=== PATIENT | male | born 1990 | race Two or more races ===

== ENCOUNTER 2020-10-03 12:33 | Emergency (ER) | payer MEDICAID ==
[~2020-10-03] VITALS: Ht 162.6 cm; Wt 63.6 kg
--- NOTE | 2020-10-03 12:46 | NUR ---
PT IS ON THE MONITOR, ROOM IS NOT CLEARED.
[2020-10-03 14:13] VITALS: BP 102/67
== END 2020-10-03 14:16 | disposition home or self-care (01) ==
LOC: ER 12:34
DX: Z02.89 Encounter for other administrative examinations (principal); R44.1 Visual hallucinations; Z88.1 Allergy status to other antibiotic agents
CPT/HCPCS: 99283

== ENCOUNTER 2020-10-20 17:21 | Emergency (ER) | payer MEDICAID ==
[~2020-10-20] VITALS: Ht 165.1 cm; Wt 63.6 kg
[2020-10-20] MEDS ORDERED: risperiDONE 0.5mg tablet PO ONE (17:25)
[2020-10-20 18:12] LABS: BASOPHILS % (AUTO) 0.3 % (0-1); EOSINOPHILS # (AUTO) 0.1 X10'3 (0-0.9); EOSINOPHILS % (AUTO) 1.4 % (0-6); HEMATOCRIT 42.2 % (42.0-52.0); HEMOGLOBIN 14.4 g/dl (14.0-17.9); LYMPHOCYTES # (AUTO) 1.7 X10'3 (1.1-4.8); LYMPHOCYTES % (AUTO) 27.1 % (21-51); MEAN CORPUSCULAR HEMOGLOBIN 29.1 PG (27.0-31.0); MEAN CORPUSCULAR HGB CONC 34.2 g/dL (33.0-36.5); MEAN CORPUSCULAR VOLUME 85.3 FL (78-98); MEAN PLATELET VOLUME 7.7 FL (7.4-10.4); MONOCYTES # (AUTO) 0.5 X10'3 (0-0.9); MONOCYTES % (AUTO) 7.8 % (2-12); NEUTROPHILS % (AUTO) 63.4 % (42-75); PLATELET COUNT 247 X10'3 (140-440); RED BLOOD COUNT 4.95 X10'6 (4.70-6.10); RED CELL DISTRIBUTION WIDTH 13.3 % (11.5-14.5); WHITE BLOOD COUNT 6.3 X10'3 (4.5-11.0)
[2020-10-20 18:24] LABS: ALBUMIN/GLOBULIN RATIO 1.3 (1.1-1.5); ANION GAP 10 (8-16); ASPARTATE AMINO TRANSFERASE 21 U/L (10-37); BILIRUBIN,TOTAL 1.1 MG/DL (0.1-1.0); BLOOD UREA NITROGEN 18 MG/DL (7-18); BUN/CREATININE RATIO 18.8 (5.4-32.0); CALCIUM 8.8 MG/DL (8.5-10.1); CHLORIDE 103 MMOL/L (99-107); CREATININE 0.96 MG/DL (0.60-1.10); GLUCOSE 124 MG/DL (70-104); POTASSIUM 3.5 MMOL/L (3.5-5.1); SODIUM 141 MMOL/L (135-145); TOTAL CARBON DIOXIDE 28.5 MMOL/L (24-32); TOTAL PROTEIN 7.1 G/DL (6.4-8.2); eGFR > 90 ML/MIN
[2020-10-20 18:25] LABS: ALANINE AMINOTRANSFERASE 28 U/L (12-78); ALKALINE PHOSPHATASE 55 IU/L (46-116)
[2020-10-20 18:34] LABS: ETHANOL < 0.010 GM/DL (0.0-0.010)
--- NOTE | 2020-10-20 19:41 | NUR ---
Patient brought to overflow bed 22 from ER bed 11. Received report and assumed care of patient from MARGIE Calderon.
[2020-10-20 19:51] LABS: CLARITY,URINE CLEAR (Clear); COLOR,URINE YELLOW (Yellow); GLUCOSE, URINE NEGATIVE (Neg); KETONES,URINE NEGATIVE (Neg); LEUKOCYTE ESTERASE ,URINE NEGATIVE (Neg); NITRITES, URINE NEGATIVE (Neg); OCCULT BLOOD,URINE NEGATIVE (Neg); PH,URINE 8.5 (4.8-8.0); PROTEIN,URINE NEGATIVE (Neg)
[2020-10-20 19:57] LABS: UA COLLECTION TYPE URINAL
[2020-10-20 20:05] LABS: URINE AMPHETAMINE SCREEN NEGATIVE (Neg); URINE BARBITUATE SCREEN NEGATIVE (Neg); URINE BENZODIAZEPINES SCREEN NEGATIVE (Neg); URINE CANNABINOID SCREEN NEGATIVE (Neg); URINE COCAINE SCREEN NEGATIVE (Neg); URINE METHADONE SCREEN NEGATIVE (Neg); URINE OPIATE SCREEN NEGATIVE (Neg); URINE PHENCYCLIDINE SCREEN NEGATIVE (Neg)
--- NOTE | 2020-10-20 20:39 | NUR ---
The patient is sleeping in supine position with covers over his head. No signs of distress.
--- NOTE | 2020-10-20 22:19 | NUR ---
The patient continues to sleep with his head covered. No s/s of distress
--- NOTE | 2020-10-21 00:10 | NUR ---
The patient is sleeping on his right side. RR unlabored. No distress.
--- NOTE | 2020-10-21 01:48 | NUR ---
The patient is asleep in supine position. Breathing is equal and unlabored. No s/s of distress.
--- NOTE | 2020-10-21 03:00 | NUR ---
ASSUMED CARE OF PATIENT SLEEPING SUPINE IN BED . HOB ELEVATED AT 20 DEGREES RESP EVEN AND UNLABORED PT IN THE DIRECT LINE OF SITE OF NURSING STAFF . WILL CONTINUE TO MONITOR AND REASSESS
--- NOTE | 2020-10-21 04:00 | NUR ---
PATIENT SLEEPING SUPINE IN BED . HOB ELEVATED AT 20 DEGREES RESP EVEN AND UNLABORED PT IN THE DIRECT LINE OF SITE OF NURSING STAFF . WILL CONTINUE TO MONITOR AND REASSESS
--- NOTE | 2020-10-21 05:00 | NUR ---
ASSUMED CARE OF PATIENT SLEEPING SUPINE IN BED . HOB ELEVATED AT 20 DEGREES RESP EVEN AND UNLABORED PT IN THE DIRECT LINE OF SITE OF NURSING STAFF . WILL CONTINUE TO MONITOR AND REASSESS AURSOABLE TO TOUCH . NO CHANGES TO PREVIOUS ASSESSMENT
--- NOTE | 2020-10-21 06:26 | NUR ---
Patient sleeping supine. No distress observed. Continue to monitor.
--- NOTE | 2020-10-21 06:43 | NUR ---
FAXED PACKET [facility]
[2020-10-21] MEDS ORDERED: LURA40TA3 PO (07:42)
--- NOTE | 2020-10-21 08:06 | NUR ---
Patient eating breakfast. No distress observed. Continue to monitor.
--- NOTE | 2020-10-21 09:36 | NUR ---
Patient sleeping supine. No distress observed. Continue to monitor.
--- NOTE | 2020-10-21 12:05 | NUR ---
Patient ambulatory to BR, steady gait. No distress observed. Continue to monitor.
--- NOTE | 2020-10-21 13:05 | NUR ---
Patient eating lunch. No distress observed. Continue to monitor.
--- NOTE | 2020-10-21 15:03 | NUR ---
Patient sleeping on right side. No distress observed. Continue to monitor.
--- NOTE | 2020-10-21 17:04 | NUR ---
Patient sleeping supine. No distress observed. Continue to monitor.
--- NOTE | 2020-10-21 18:53 | NUR ---
The patient ate very little of his supper. He is resting on his bed with his head covered. During the evening assessment he did uncover his head but gave no eye contact. When asked why he was here he stated, "schizophrenia" When asked about hallucinations he stated that he heard high pitched voices and lights but could not make out what the voices were saying. When asked what the month and the year was he stated, "[place], , " When answering questions there was a response delay. He described his energy level as "no good. I just sleep to skip the days" He is unable to verbalize a plan for food residential or clothing if he were discharged. When asked where he has been sleeping at night he replied, "I don't know. Where it's lonely"
--- NOTE | 2020-10-21 19:15 | NUR ---
The patient is up to the bathroom and snack given.
[2020-10-21 20:21] VITALS: BP 129/73
[2020-10-21] MEDS ORDERED: lurasidone 20mg tablet PO SCH (21:00)
== END 2020-10-21 20:25 ==
LOC: ER 17:22
DX: F20.9 Schizophrenia, unspecified (principal); Z20.822 Contact with and (suspected) exposure to COVID-19; Z88.1 Allergy status to other antibiotic agents; Z79.899 Other long term (current) drug therapy; Z59.0 Homelessness
CPT/HCPCS: 36415; 80053; 80305; 80320; 81003; 84443; 85025; 87426; 99285